=== PATIENT | male | born 1965 | race Caucasian/White ===

== ENCOUNTER 2019-07-05 05:32 | Inpatient (IN) | payer BC, OTHER ==
[2019-07-01 18:52] VITALS: Ht 180.3 cm; Wt 90.7 kg
[2019-07-05] VITALS (25 sets, daily range): BP systolic 115–150; BP diastolic 77–93; PULSE 58–86; RESP 12–18
[~2019-07-05] VITALS: Ht 180.3 cm; Wt 90.7 kg
[~2019-07-05 05:32] MED LIST: AMLO-352 PO; ESCI10TA48 PO
[2019-07-05] MEDS ORDERED: CEFAZOLIN 2 GM/50 ML (PMX) 50 ML IVPB ONE (06:00)
[2019-07-05] MEDS: LACTATED RINGER'S 1,000 ML (ENTER RATE) IV SCH (06:58)
[2019-07-05] MEDS ORDERED: MIDAZOLAM 1 MG/ML 2 ML INJ ONE (07:00)
[2019-07-05] MEDS ORDERED: BUPIVACAINE 0.25% (MPF) 30 ML INJ ONE (07:47)
[2019-07-05] MEDS ORDERED: GELATIN SIZE 100 SPONGE ONE (07:47)
[2019-07-05] MEDS ORDERED: POLYMYXIN/BACITRACIN 1L IRRIG ONE (07:47)
[2019-07-05] MEDS ORDERED: THROMBIN 5000 UNIT (RECOTHROM) VIAL ONE (07:47)
[2019-07-05] MEDS ORDERED: BUPIVACAINE 0.25%/EPI (SDV) 10 ML INJ ONE (07:54)
[2019-07-05] MEDS ORDERED: morphine 10 MG INJ ONE (08:40)
[2019-07-05] MEDS ORDERED: ONDANSETRON 4 MG INJ ONE (09:38)
[2019-07-05] MEDS ORDERED: ROCURONIUM 50 MG INJ ONE (09:39)
[2019-07-05] MEDS ORDERED: ETOMIDATE 20 MG INJ ONE (09:39)
[2019-07-05] MEDS ORDERED: LIDOCAINE 2% (SDV) 5 ML INJ ONE (09:39)
[2019-07-05] MEDS ORDERED: NEOSTIGMINE 3 MG/3 ML SYRINGE ONE (09:39)
[2019-07-05] MEDS ORDERED: GLYCOPYRROLATE 0.4 MG INJ ONE (09:39)
[2019-07-05] MEDS ORDERED: MEPERIDINE 25 MG INJ ONE (09:54)
[2019-07-05] MEDS ORDERED: ONDANSETRON 4 MG INJ IV PRN ×2 (10:00→10:30)
[2019-07-05] MEDS ORDERED: MIDAZOLAM 1 MG/ML 2 ML INJ IV PRN (10:00)
[2019-07-05] MEDS ORDERED: MEPERIDINE 25 MG INJ IV PRN (10:00)
[2019-07-05] MEDS ORDERED: METOCLOPRAMIDE 10 MG INJ IV PRN (10:00)
[2019-07-05] MEDS ORDERED: FENTAnyl 50 MCG/ML VIAL IV PRN (10:00)
[2019-07-05] MEDS ORDERED: DIPHENHYDRAMINE 50 MG INJ IV PRN (10:00)
[2019-07-05] MEDS ORDERED: hydrALAzine 20 MG INJ IV PRN (10:00)
[2019-07-05] MEDS ORDERED: HYDROmorphONE 1 MG/5 ML IV SYRINGE IV PRN (10:00)
[2019-07-05] MEDS: HYDROmorphONE 1 MG/5 ML IV SYRINGE IV PRN ×2 (10:17→10:31)
[2019-07-05] MEDS ORDERED: ACETAMINOPHEN 325 MG TAB PO PRN (10:30)
[2019-07-05] MEDS ORDERED: DIPHENHYDRAMINE 50 MG CAP PO PRN (10:30)
[2019-07-05] MEDS ORDERED: BETHANECHOL 25 MG TAB PO PRN (10:30)
[2019-07-05] MEDS ORDERED: ZOLPIDEM 5 MG TAB PO PRN (10:30)
[2019-07-05] MEDS ORDERED: TRIMETHOBENZAMIDE 100 MG/ML VIAL IM PRN (10:30)
[2019-07-05] MEDS ORDERED: NACL 0.9% 3 ML SYG IV SCH (10:30)
[2019-07-05] MEDS ORDERED: DIAZEPAM 5 MG TAB PO PRN (10:30)
[2019-07-05] MEDS ORDERED: AL HYDROX/MG HYDROX/SIMETH 30 ML CUP PO PRN (10:30)
[2019-07-05] MEDS ORDERED: PROCHLORPERAZINE 10 MG TAB PO PRN (10:30)
[2019-07-05] MEDS ORDERED: NALOXONE (0.4 MG/ML) INJ IV PRN (10:30)
[2019-07-05] MEDS ORDERED: DIAZEPAM 10 MG/2 ML SYG IM PRN (10:30)
[2019-07-05] MEDS ORDERED: HYDROCODONE/APAP (5/325) TAB PO PRN (10:30)
[2019-07-05] MEDS ORDERED: CEPASTAT LOZENGE MT PRN (10:30)
[2019-07-05] MEDS: HYDROmorphONE 0.2 MG/ML PCA IV SCH ×2 (10:41→17:25)
[2019-07-05] MEDS: DEXTROSE 5%-0.45% NACL 1,000 ML IV SCH ×2 (11:59→20:40)
[2019-07-05] MEDS: RANITIDINE 150 MG TAB PO SCH (20:40)
[2019-07-06] MEDS: HYDROmorphONE 0.2 MG/ML PCA IV SCH (03:28)
[2019-07-06 04:41] VITALS: BP 160/94; PULSE 78; RESP 18
[2019-07-06] MEDS: LACTATED RINGER'S 1,000 ML (ENTER RATE) IV SCH (06:00)
[2019-07-06] MEDS: DEXTROSE 5%-0.45% NACL 1,000 ML IV SCH (06:08)
[2019-07-06] MEDS ORDERED: BETHANECHOL 25 MG TAB PO PRN (08:00)
[2019-07-06 08:22] VITALS: BP 165/95; PULSE 85; RESP 19
[2019-07-06] MEDS: POTASSIUM CITRATE (SR) 5 MEQ TAB PO SCH (08:33)
[2019-07-06] MEDS: LOSARTAN 25 MG TAB PO SCH (08:34)
[2019-07-06] MEDS: ASCORBIC ACID 500 MG TAB PO SCH ×2 (08:35→20:08)
[2019-07-06] MEDS: RANITIDINE 150 MG TAB PO SCH ×2 (08:36→20:08)
[2019-07-06] MEDS: DOCUSATE SODIUM 100 MG CAP PO SCH ×2 (08:36→20:09)
[2019-07-06] MEDS: FERROUS SULFATE (EC) 325 MG TAB PO SCH ×3 (08:36→20:07)
[2019-07-06] MEDS: ESCITALOPRAM 10 MG TAB PO SCH (08:36)
[2019-07-06] MEDS: AMLODIPINE 10 MG TAB PO SCH (08:36)
[2019-07-06 11:05] VITALS: BP 160/100; PULSE 95
[2019-07-06] MEDS: HYDROCODONE/APAP (5/325) TAB PO PRN ×2 (12:56→20:09)
[2019-07-06 14:51] VITALS: BP 170/92; PULSE 100; RESP 20
[2019-07-06 15:48] VITALS: BP 155/88; PULSE 98
[2019-07-06] MEDS ORDERED: hydrALAzine 20 MG INJ IV PRN (19:00)
[2019-07-06 20:30] VITALS: BP 153/84; PULSE 88; RESP 19
[2019-07-07] MEDS: HYDROCODONE/APAP (5/325) TAB PO PRN ×3 (06:35→20:34)
[2019-07-07 08:33] VITALS: BP 144/84; PULSE 83; RESP 18
[2019-07-07] MEDS: AMLODIPINE 10 MG TAB PO SCH (09:38)
[2019-07-07] MEDS: DOCUSATE SODIUM 100 MG CAP PO SCH ×2 (09:38→20:33)
[2019-07-07] MEDS: ESCITALOPRAM 10 MG TAB PO SCH (09:38)
[2019-07-07] MEDS: ASCORBIC ACID 500 MG TAB PO SCH ×2 (09:38→20:33)
[2019-07-07] MEDS: LOSARTAN 25 MG TAB PO SCH (09:39)
[2019-07-07] MEDS: FERROUS SULFATE (EC) 325 MG TAB PO SCH ×3 (09:39→20:33)
[2019-07-07] MEDS: RANITIDINE 150 MG TAB PO SCH ×2 (09:39→20:33)
[2019-07-07] MEDS: POTASSIUM CITRATE (SR) 5 MEQ TAB PO SCH (09:40)
[2019-07-07 14:57] VITALS: BP 147/80; PULSE 91; RESP 19
[2019-07-07 15:45] VITALS: PULSE 98
[2019-07-07 18:24] VITALS: BP 131/74; PULSE 83; RESP 20
[2019-07-07 19:55] VITALS: BP 133/82; PULSE 84; RESP 18
[2019-07-08 00:08] VITALS: BP 127/77; PULSE 90; RESP 16
[2019-07-08] MEDS: HYDROCODONE/APAP (5/325) TAB PO PRN (05:42)
[2019-07-08 07:30] VITALS: BP 120/81; PULSE 75; RESP 18
[2019-07-08] MEDS: POTASSIUM CITRATE (SR) 5 MEQ TAB PO SCH (08:21)
[2019-07-08] MEDS: FERROUS SULFATE (EC) 325 MG TAB PO SCH (08:21)
[2019-07-08] MEDS: LOSARTAN 25 MG TAB PO SCH (08:22)
[2019-07-08] MEDS: RANITIDINE 150 MG TAB PO SCH (08:23)
[2019-07-08] MEDS: ESCITALOPRAM 10 MG TAB PO SCH (08:23)
[2019-07-08] MEDS: AMLODIPINE 10 MG TAB PO SCH (08:23)
[2019-07-08] MEDS: DOCUSATE SODIUM 100 MG CAP PO SCH (08:23)
[2019-07-08] MEDS: ASCORBIC ACID 500 MG TAB PO SCH (08:23)
== END 2019-07-08 09:26 | disposition home or self-care (01) | DRG 519 ==
LOC: REC 05:32 → MS1 11:42
PROVIDERS: ADMIT Orthopaedic Surgery; ATTEND Orthopaedic Surgery
PROC: 00NX0ZZ Release Thoracic Spinal Cord, Open Approach (ICD-10-PCS; 2019-07-05)
PROC: 00NW0ZZ Release Cervical Spinal Cord, Open Approach (ICD-10-PCS; principal; 2019-07-05 07:00)
DX: M48.02 Spinal stenosis, cervical region (principal); M50.01 Cervical disc disorder with myelopathy, high cervical region; M50.11 Cervical disc disorder with radiculopathy, high cervical region; F33.42 Major depressive disorder, recurrent, in full remission; I10 Essential (primary) hypertension; R50.82 Postprocedural fever; E78.5 Hyperlipidemia, unspecified; E66.9 Obesity, unspecified; Z87.891 Personal history of nicotine dependence
CPT/HCPCS: 71045; 72020; 80048; 81001; 81003; 85014; 85018; 85025; 86850; 86900; 86901; 86920; 87086; 88304; 88311; 97116; 97162; 97530; J0690; J1170; J2175; J2250; J2270; J2405; J2710; J3010; J7042; J7120

== ENCOUNTER 2019-07-17 17:40 | Emergency (ER) | payer BC ==
[~2019-07-17] VITALS: Ht 188 cm; Wt 91.5 kg
[2019-07-17 17:54] VITALS: Ht 188 cm; Wt 91.5 kg
[2019-07-17 22:04] VITALS: BP 131/81; PULSE 80; RESP 16
== END 2019-07-17 22:05 | disposition home or self-care (01) ==
LOC: E/R 17:40
DX: T81.31XA Disruption of external operation (surgical) wound, not elsewhere classified, initial encounter (principal); I10 Essential (primary) hypertension; Y79.8 Miscellaneous orthopedic devices associated with adverse incidents, not elsewhere classified; Z87.891 Personal history of nicotine dependence; Z98.890 Other specified postprocedural states
CPT/HCPCS: 80048; 85025; 85651; 86140; 87070; 99283